=== PATIENT | male | born 1975 | race Caucasian/White ===

== ENCOUNTER 2018-01-01 07:37 | Emergency (ER) | payer OTHER ==
[2018-01-01] MEDS: MORPHINE SULFATE 10 MG/ML VIAL. IM (08:23)
== END 2018-01-01 09:03 | disposition home or self-care (01) ==
LOC: ER 07:37
DX: M54.5 Low back pain (principal); G25.81 Restless legs syndrome
CPT/HCPCS: 96372; 99283; J2270